=== PATIENT | female | born 1935 | race Caucasian/White ===

== ENCOUNTER → 2017-01-14 | Outpatient (CLI) | payer OTHER | LOC: FIMAGING 13:08 | PROVIDERS: ATTEND Internal Medicine Cardiovascular Disease | DX: J43.9 Emphysema, unspecified (principal); J90 Pleural effusion, not elsewhere classified; I25.83 Coronary atherosclerosis due to lipid rich plaque; Z79.899 Other long term (current) drug therapy ==

== ENCOUNTER → 2018-04-14 | Outpatient (CLI) | payer OTHER | DX: J98.4 Other disorders of lung (principal); I70.0 Atherosclerosis of aorta; I77.1 Stricture of artery; Z79.899 Other long term (current) drug therapy ==

== ENCOUNTER 2018-08-27 17:15 | Inpatient (IN) | payer OTHER ==
--- NOTE | 2018-08-27 17:32 | EDPHY ---
H & P Time Seen by Provider: 08/27/18 17:18 HPI/ROS: CHIEF COMPLAINT: Abdominal pain HISTORY OF PRESENT ILLNESS: [place] [address] [place] and had bread from [employer] and an egg-beater on top, but she thought the bread might be bad because she had it for 2 weeks. Shortly afterwards at about 1:30 p.m. She developed lower right-sided abdominal pain associated with nausea and vomiting multiple times. Abdominal pain still present, worse with movement or palpation. No diarrhea. No fever or chills. Does not radiate. REVIEW OF SYSTEMS: Eye: no change in vision ENT: no sore throat Cardiac: no chest pain or syncope Pulmonary: no cough or SOB Abdomen: HPI Musculoskeletal: no back pain Skin: no rash Neuro: no headache Constitutional: no fever : no urinary symptoms A comprehensive 10 point review of systems is otherwise negative aside from elements mentioned in the history of present illness. PAST MEDICAL HISTORY: Includes AFib atrial fibrillation, basal cell carcinoma [place] [address] General Appearance: Alert and conversant, cooperative. Eyes: No scleral icterus. ENT, Mouth: Dry mucous membranes. Respiratory: Normal respiratory effort, breath sounds equal, lungs are clear to auscultation. Cardiovascular: Regular rate and rhythm. Gastrointestinal: Right-sided abdominal tenderness without rebound or guarding , decreased bowel sounds. Neurological: Alert, face symmetric, normal motor and sensory in extremities. Skin: Warm and dry, no rashes. Musculoskeletal: No peripheral edema. Psychiatric: Not agitated. Emergency Department course/MDM: Declined pain medication. I-STAT creatinine 1.1, CT abdomen pelvis discussed and consented. 1830: Per Dr. Gil shows at least 3 small-bowel diverticula with inflammation consistent with small bowel diverticulitis, normal appendix, otherwise negative. He does not think this looks ischemic. 2007: 1 gianluca Valles discussed and consented. The patient says her penicillin allergy happened in the 1930s when she was given a"yellow vial"of penicillin to drink because the kids in her neighborhood had "trench mouth." She has subsequently had ampicillin without any reaction. Constitutional: Initial Vital Signs Temperature (C) 37.1 C 08/27/18 17:36 Heart Rate 68 08/27/18 17:36 Respiratory Rate 18 08/27/18 17:36 Blood Pressure 161/90 H 08/27/18 17:36 O2 Sat (%) 88 L 08/27/18 17:36 O2 Delivery Mode Room Air O2 (L/minute) 2 Allergies/Adverse Reactions: Penicillins Allergy (Verified 08/27/18 17:36) Home Medications: Medication Instructions Recorded Amiodarone HCl [Pacerone] 100 mg PO HS 08/27/18 C/E/Zn/Cu/OM3/DHA/EPA/LUT/ZEAX 1 each PO BID 08/27/18 [Preservision Areds 2 Softgel] Citalopram [CeleXA] 20 mg PO DAILY 08/27/18 Lisinopril [Zestril 10 mg (*)] 10 mg PO DAILY 08/27/18 Metoprolol Tartrate [Lopressor 50 75 mg PO BID 08/27/18 mg (*)] Warfarin Sodium [Coumadin 1MG (*)] 3.5 mg PO DAILY16 08/27/18 Medical Decision Making - Diagnostics Imaging Results: Imaging Impressions Abdomen CT 08/27/18 17:45 Impression: 1. Small bowel diverticulitis in the right lower quadrant. No perforation or pneumoperitoneum. 2. Normal retrocecal appendix. 3. No evidence of ischemic bowel. 4. Extensive colonic diverticulosis. No acute colonic diverticulitis. 5. Gallbladder sludge and tiny stones. No CT evidence of acute cholecystitis. 6. Bilateral nephrolithiasis. No hydronephrosis or obstructing ureteral calculi. Findings discussed with Emergency Department physician, VITALIY ABREU at 2017 18:28. Imaging: Discussed imaging studies w/ will call clerk Radiologist Differential Diagnosis: Differential includes but not limited to diverticulitis, appendicitis, mesenteric ischemia, volvulus. Consult/Admit Bed Type: [place] [id number] - Data Points Laboratory Results: Laboratory Results 08/27/18 17:48 08/27/18 17:48 08/27/18 08/27/18 08/27/18 18:35 17:48 17:48 WBC 11.48 10^3/uL H 10^3/uL (3.80-9.50) RBC 4.86 10^6/uL 10^6/uL (4.18-5.33) Hgb 14.2 g/dL g/dL (12.6-16.3) POC Hgb Hct 43.1 % % (38.0-47.0) POC Hct MCV 88.7 fL fL (81.5-99.8) MCH 29.2 pg pg (27.9-34.1) MCHC 32.9 g/dL g/dL (32.4-36.7) RDW 14.3 % % (11.5-15.2) Plt Count 186 10^3/uL 10^3/uL (150-400) MPV 9.3 fL fL (8.7-11.7) Neut % (Auto) 81.3 % H % (39.3-74.2) Lymph % (Auto) 9.1 % L % (15.0-45.0) [place] % (Auto) 8.1 % % (4.5-13.0) Eos % (Auto) 0.9 % % (0.6-7.6) Baso % (Auto) 0.3 % % (0.3-1.7) Nucleat RBC Rel Count 0.0 % % (0.0-0.2) Absolute Neuts (auto) 9.33 10^3/uL H 10^3/uL (1.70-6.50) Absolute Lymphs (auto) 1.05 10^3/uL 10^3/uL (1.00-3.00) Absolute Monos (auto) 0.93 10^3/uL H 10^3/uL (0.30-0.80) Absolute Eos (auto) 0.10 10^3/uL 10^3/uL (0.03-0.40) Absolute Basos (auto) 0.03 10^3/uL 10^3/uL (0.02-0.10) Absolute Nucleated RBC 0.00 10^3/uL 10^3/uL (0-0.01) Immature Gran % 0.3 % % (0.0-1.1) Immature Gran # 0.04 10^3/uL 10^3/uL (0.00-0.10) PT INR POC Sodium Sodium 136 mEq/L mEq/L (135-145) POC Potassium Potassium 4.0 mEq/L mEq/L (3.5-5.2) POC Chloride Chloride 106 mEq/L mEq/L (97-110) Carbon Dioxide 25 mEq/l mEq/l (22-31) Anion Gap 5 mEq/L L mEq/L (6-14) POC BUN BUN 18 mg/dL mg/dL (7-23) Creatinine 1.0 mg/dL mg/dL (0.6-1.0) POC Creatinine Estimated GFR 53 Glucose 109 mg/dL H mg/dL (70-100) POC Glucose Calcium 9.3 mg/dL mg/dL (8.5-10.4) Total Bilirubin 0.6 mg/dL mg/dL (0.1-1.4) Conjugated Bilirubin 0.2 mg/dL mg/dL (0.0-0.5) Unconjugated Bilirubin 0.4 mg/dL mg/dL (0.0-1.1) AST 21 IU/L IU/L (14-46) ALT 16 IU/L IU/L (9-52) Alkaline Phosphatase 55 IU/L IU/L (38-126) Total Protein 7.5 g/dL g/dL (6.3-8.2) Albumin 4.1 g/dL g/dL (3.5-5.0) Lipase 63 IU/L IU/L (23-300) Urine Color YELLOW Urine Appearance CLEAR Urine pH 6.0 (5.0-7.5) Ur Specific [place] 1.018 (1.002-1.030) Urine Protein NEGATIVE (NEGATIVE) Urine Ketones NEGATIVE (NEGATIVE) Urine Blood NEGATIVE (NEGATIVE) Urine Nitrate NEGATIVE (NEGATIVE) Urine Bilirubin NEGATIVE (NEGATIVE) Urine Urobilinogen NEGATIVE EU EU (0.2-1.0) Ur Leukocyte Esterase NEGATIVE (NEGATIVE) Urine Glucose NEGATIVE (NEGATIVE) 08/27/18 08/27/18 17:44 17:40 WBC RBC Hgb POC Hgb 15.0 gm/dL gm/dL (12.6-16.3) Hct POC Hct 44 % % (38-47) MCV MCH MCHC RDW Plt Count MPV Neut % (Auto) Lymph % (Auto) Nash % (Auto) Eos % (Auto) Baso % (Auto) Nucleat RBC Rel Count Absolute Neuts (auto) Absolute Lymphs (auto) Absolute Monos (auto) Absolute Eos (auto) Absolute Basos (auto) Absolute Nucleated RBC Immature Gran % Immature Gran # PT 25.6 SEC H SEC (12.0-15.0) INR 2.34 H (0.83-1.16) POC Sodium 143 mEq/L mEq/L (135-145) Sodium POC Potassium 3.9 mEq/L mEq/L (3.3-5.0) Potassium POC Chloride 106 mEq/L mEq/L (97-110) Chloride Carbon Dioxide Anion Gap POC BUN 18 mg/dL mg/dL (7-23) BUN Creatinine POC Creatinine 1.1 mg/dL H mg/dL (0.6-1.0) Estimated GFR Glucose POC Glucose 111 mg/dL H mg/dL (70-100) Calcium Total Bilirubin Conjugated Bilirubin Unconjugated Bilirubin AST ALT Alkaline Phosphatase Total Protein Albumin Lipase Urine Color Urine Appearance Urine pH Ur Specific [place] Urine Protein Urine Ketones Urine Blood Urine Nitrate Urine Bilirubin Urine Urobilinogen Ur Leukocyte Esterase Urine Glucose Medications Given: Discontinued Medications Sodium Chloride (Ns) 1,000 mls @ 0 mls/hr IV EDNOW ONE; Wide Open PRN Reason: Protocol Stop: 08/27/18 17:36 Last Admin: 08/27/18 17:40 Dose: 1,000 mls Ertapenem 1 gm/ Sodium (Chloride) 100 mls @ 200 mls/hr IV EDNOW ONE PRN Reason: Protocol Stop: 08/27/18 20:33 Last Admin: 08/27/18 20:41 Dose: 100 mls Point of Care Test Results: Chemistry 08/27/18 17:44 POC Sodium 143 mEq/L mEq/L (135-145) POC Potassium 3.9 mEq/L mEq/L (3.3-5.0) POC Chloride 106 mEq/L mEq/L (97-110) POC BUN 18 mg/dL mg/dL (7-23) POC Creatinine 1.1 mg/dL H mg/dL (0.6-1.0) POC Glucose 111 mg/dL H mg/dL (70-100) ISTAT H&H 08/27/18 17:44 POC Hgb 15.0 gm/dL gm/dL (12.6-16.3) POC Hct 44 % % (38-47) Departure - Departure Disposition: [facility] Acute Clinical Impression: Diverticulitis small intestine w/o perforation or abscess w/o bleeding Condition: Good
[2018-08-27] MEDS ORDERED: NS 1,000 ML IV ONE (17:35)
[2018-08-27] MEDS ORDERED: IOPAMIDOL (ISOVUE-300) 100 ML BTL ONE (17:52)
[2018-08-27 17:56] LABS: PLATELET COUNT 186 10^3/uL (150-400)
[2018-08-27] MEDS ORDERED: ERTAPENEM 1 GM in NS 100 ML IV ONE (20:04)
[2018-08-27 20:06] LABS: INR 2.34 (0.83-1.16); PROTIME(PATIENT) 25.6 SEC (12.0-15.0)
[2018-08-27] MEDS ORDERED: AMIODARONE HCL 200 MG TAB PO SCH (21:45)
[2018-08-27] MEDS ORDERED: ONDANSETRON 4 MG/2 ML VIAL IVP PRN (21:46)
[2018-08-27] MEDS ORDERED: ACETAMINOPHEN 325 MG TAB PO PRN (21:46)
[2018-08-27] MEDS ORDERED: ONDANSETRON DISINTEGRATING 4 MG TAB PO PRN (21:46)
--- NOTE | 2018-08-27 21:52 | PDGENHP ---
History and Physical - Chief Complaint abdominal pain - History of Present Illness The patient pw right-sided abdominal pain associated with nausea and vomiting multiple times. She has been afebrile. Her oral intake has been limited IN the ER she is noted to have Leukocytosis and a CT scan shows SB Diverticulitis. She was treated with IVF and abx and reports that she is starting to feel better. No diarrhea. No fever or chills. Does not radiate. No urinary sx. No resp sx. AFib atrial fibrillation, basal cell carcinoma, chronic AC, HTN Social history: Lives up in the [facility] [address]. No smoker FmHx: non contributory CT report: 3 small-bowel diverticula with inflammation consistent with small bowel diverticulitis, normal appendix, otherwise negative. no e/o ischemia. History Information - Allergies/Home Medication List Allergies/Adverse Reactions: Penicillins Allergy (Verified 08/27/18 17:36) Home Medications: Amiodarone HCl [Pacerone] 100 mg PO HS 08/27/18 [Last Taken 08/26/18] C/E/Zn/Cu/OM3/DHA/EPA/LUT/ZEAX [Preservision Areds 2 Softgel] 1 each PO BID [Last Taken 08/27/18] Citalopram [CeleXA] 20 mg PO DAILY 08/27/18 [Last Taken 08/27/18] Lisinopril [Zestril 10 mg (*)] 10 mg PO DAILY 08/27/18 [Last Taken 08/27/18] Metoprolol Tartrate [Lopressor 50 mg (*)] 75 mg PO BID 08/27/18 [Last Taken ] Warfarin Sodium [Coumadin 1MG (*)] 3.5 mg PO DAILY16 08/27/18 [Last Taken ] I have personally reviewed and updated: medical history, social history - Social History Smoking Status: Former smoker Review of Systems Review of Systems: ROS: 10pt was reviewed & negative except for what was stated in HPI & below Physical Exam Physical Exam: Temp Pulse Resp BP Pulse Ox 36.8 C 79 18 134/74 H 92 08/27/18 21:10 08/27/18 21:10 08/27/18 21:10 08/27/18 21:10 08/27/18 21:10 Constitutional: no apparent distress Eyes: PERRL, EOMI Ears, Nose, Mouth, Throat: hearing normal, dry mucous membranes Cardiovascular: regular rate and rhythym Respiratory: no respiratory distress, no rales or rhonchi, clear to auscultation Gastrointestinal: normoactive bowel sounds, tenderness (RLQ tenderness), No rebound, No distension Skin: warm Neurologic: AAOx3 Psychiatric: interacting appropriately, not anxious, not encephalopathic Lymph, Heme, Immunologic: No petechiae Lab Data & Imaging Review 08/27/18 17:48 08/27/18 17:48 WBC 11.48 10^3/uL (3.80-9.50) H 08/27/18 17:48 RBC 4.86 10^6/uL (4.18-5.33) 08/27/18 17:48 Hgb 14.2 g/dL (12.6-16.3) 08/27/18 17:48 POC Hgb 15.0 gm/dL (12.6-16.3) 08/27/18 17:44 Hct 43.1 % (38.0-47.0) 08/27/18 17:48 POC Hct 44 % (38-47) 08/27/18 17:44 MCV 88.7 fL (81.5-99.8) 08/27/18 17:48 MCH 29.2 pg (27.9-34.1) 08/27/18 17:48 MCHC 32.9 g/dL (32.4-36.7) 08/27/18 17:48 RDW 14.3 % (11.5-15.2) 08/27/18 17:48 Plt Count 186 10^3/uL (150-400) 08/27/18 17:48 MPV 9.3 fL (8.7-11.7) 08/27/18 17:48 Neut % (Auto) 81.3 % (39.3-74.2) H 08/27/18 17:48 Lymph % (Auto) 9.1 % (15.0-45.0) L 08/27/18 17:48 [place] % (Auto) 8.1 % (4.5-13.0) 08/27/18 17:48 Eos % (Auto) 0.9 % (0.6-7.6) 08/27/18 17:48 Baso % (Auto) 0.3 % (0.3-1.7) 08/27/18 17:48 Nucleat RBC Rel Count 0.0 % (0.0-0.2) 08/27/18 17:48 Absolute Neuts (auto) 9.33 10^3/uL (1.70-6.50) H 08/27/18 17:48 Absolute Lymphs (auto) 1.05 10^3/uL (1.00-3.00) 08/27/18 17:48 Absolute Monos (auto) 0.93 10^3/uL (0.30-0.80) H 08/27/18 17:48 Absolute Eos (auto) 0.10 10^3/uL (0.03-0.40) 08/27/18 17:48 Absolute Basos (auto) 0.03 10^3/uL (0.02-0.10) 08/27/18 17:48 Absolute Nucleated RBC 0.00 10^3/uL (0-0.01) 08/27/18 17:48 Immature Gran % 0.3 % (0.0-1.1) 08/27/18 17:48 Immature Gran # 0.04 10^3/uL (0.00-0.10) 08/27/18 17:48 PT 25.6 SEC (12.0-15.0) H 08/27/18 17:40 INR 2.34 (0.83-1.16) H 08/27/18 17:40 POC Sodium 143 mEq/L (135-145) 08/27/18 17:44 Sodium 136 mEq/L (135-145) 08/27/18 17:48 POC Potassium 3.9 mEq/L (3.3-5.0) 08/27/18 17:44 Potassium 4.0 mEq/L (3.5-5.2) 08/27/18 17:48 POC Chloride 106 mEq/L (97-110) 08/27/18 17:44 Chloride 106 mEq/L (97-110) 08/27/18 17:48 Carbon Dioxide 25 mEq/l (22-31) 08/27/18 17:48 Anion Gap 5 mEq/L (6-14) L 08/27/18 17:48 POC BUN 18 mg/dL (7-23) 08/27/18 17:44 BUN 18 mg/dL (7-23) 08/27/18 17:48 Creatinine 1.0 mg/dL (0.6-1.0) 08/27/18 17:48 POC Creatinine 1.1 mg/dL (0.6-1.0) H 08/27/18 17:44 Estimated GFR 53 08/27/18 17:48 Glucose 109 mg/dL (70-100) H 08/27/18 17:48 POC Glucose 111 mg/dL (70-100) H 08/27/18 17:44 Calcium 9.3 mg/dL (8.5-10.4) 08/27/18 17:48 Total Bilirubin 0.6 mg/dL (0.1-1.4) 08/27/18 17:48 Conjugated Bilirubin 0.2 mg/dL (0.0-0.5) 08/27/18 17:48 Unconjugated Bilirubin 0.4 mg/dL (0.0-1.1) 08/27/18 17:48 AST 21 IU/L (14-46) 08/27/18 17:48 ALT 16 IU/L (9-52) 08/27/18 17:48 Alkaline Phosphatase 55 IU/L (38-126) 08/27/18 17:48 Total Protein 7.5 g/dL (6.3-8.2) 08/27/18 17:48 Albumin 4.1 g/dL (3.5-5.0) 08/27/18 17:48 Lipase 63 IU/L (23-300) 08/27/18 17:48 Urine Color YELLOW 08/27/18 18:35 Urine Appearance CLEAR 08/27/18 18:35 Urine pH 6.0 (5.0-7.5) 08/27/18 18:35 Ur Specific [place] 1.018 (1.002-1.030) 08/27/18 18:35 Urine Protein NEGATIVE (NEGATIVE) 08/27/18 18:35 Urine Ketones NEGATIVE (NEGATIVE) 08/27/18 18:35 Urine Blood NEGATIVE (NEGATIVE) 08/27/18 18:35 Urine Nitrate NEGATIVE (NEGATIVE) 08/27/18 18:35 Urine Bilirubin NEGATIVE (NEGATIVE) 08/27/18 18:35 Urine Urobilinogen NEGATIVE EU (0.2-1.0) 08/27/18 18:35 Ur Leukocyte Esterase NEGATIVE (NEGATIVE) 08/27/18 18:35 Urine Glucose NEGATIVE (NEGATIVE) 08/27/18 18:35 Assessment & Plan Assessment: #Diverticulitis small intestine w/o perforation or abscess w/o bleeding #Leukocytosis #Dehydration #Nausea and Vomiting #pAfib and chronic AC Plan: cannot r/o bacterial infection. reports feeling better. Will cont Invanz. Can likely d/c on Flagyl once improving IVF antiemetics as needed cont AC cont home meds PT eval
[2018-08-27] MEDS ORDERED: NS 1,000 ML IV SCH (22:00)
[2018-08-27] MEDS ORDERED: WARFARIN SODIUM 1 MG TAB PO ONE (22:00)
[2018-08-27] MEDS: METOPROLOL TARTRATE 50 MG TAB PO SCH (22:50)
[2018-08-28 04:49] LABS: PLATELET COUNT 148 10^3/uL (150-400)
[2018-08-28 04:57] LABS: INR 2.79 (0.83-1.16); PROTIME(PATIENT) 29.3 SEC (12.0-15.0)
--- NOTE | 2018-08-28 07:12 | PDMN ---
Medical Necessity Medical necessity: Pt meets inpt criteria per MD order and MCG M-150, Diverticulitis, Acute. 83 y/o presenting w/R side abdominal pain, nausea/ vomiting, admitted w/small intestine diverticulitis- confirmed on CT scan, leukocytosis (WBC's 11.48), and dehydration. IVF, IV ABX's, IV antiemetics, PT eval pending, anticipate>2MN for ongoing eval/management of above.
[2018-08-28] MEDS ORDERED: CITALOPRAM 20 MG TAB PO SCH (09:00)
[2018-08-28] MEDS ORDERED: PRESERVISION AREDS2 FORMULA EYE VIT 1 EACH PO SCH (09:00)
[2018-08-28] MEDS ORDERED: LISINOPRIL 10 MG TAB PO SCH (09:00)
[2018-08-28] MEDS: METOPROLOL TARTRATE 50 MG TAB PO SCH (09:26)
--- NOTE | 2018-08-28 11:09 | ASMTDCNOTE ---
Case Management Discharge Discharge Order Complete? Answers: Yes Patient to Obtain Answers: via Family Medications Transportation Arranged Answers: Family/Friends Discharge Comments Notes: CM discussed discharge plan with RN. Pt is being discharged independently. No CM needs identified. Family to transport. Date Signed: 08/28/2018 11:09 AM Electronically Signed By:DEREK Butts
[2018-08-28 11:10] VITALS: BP 93/60
--- NOTE | 2018-08-28 11:12 | ASMTLACE ---
LACE Length of stay for Answers: Less than 1 day current admission Acuity / Level of Answers: Yes Care: Did the patient have an inpatient admission? # of Emergency department Answers: 0 visits in the last 6 months Score: 3 Date Signed: 08/28/2018 11:12 AM Electronically Signed By:DEREK Butts
--- NOTE | 2018-08-28 11:12 | PDDCSUM ---
Discharge Summary Discharge Summary: Date of Admission: 08/27/2018 Date of Discharge: 08/28/2018 Discharge Diagnoses: Acute uncomplicated diverticulitis, improved Dehydration, resolved Leukocytosis, resolved Mild anemia, likely hemodilutional Paroxysmal atrial fibrillation, on chronic warfarin Bilateral nephrolithiasis, asymptomatic Multilevel DJD spine Moderate hiatal hernia Uterine leiomyoma Admission Diagnoses: Diverticulitis small intestine w/o perforation or abscess w/o bleeding Leukocytosis Dehydration Nausea and Vomiting pAfib and chronic AC Consultants: None. Hospital Course: The patient is an 83-year-old female with past medical history of atrial fibrillation who was admitted for acute diverticulitis. She had presented to the ED with multiple episodes of nausea and vomiting. She was unable to keep down fluids. She was treated with IV fluids and antibiotic ertapenem. She felt much better and was able to tolerate a diet the next day. The patient was discharged home with a prescription for Bactrim and Flagyl for 6 days. She is very against taking antibiotics/additional medications so the patient was educated about the importance of antibiotic use for diverticulitis. She was also confused about her warfarin dosing, which has been adjusted by her PCP. She was set up with home healthcare to avoid any confusion about medications until she can be seen at her PCP office. Physical Exam: Gen: alert, NAD. MSK: able to ambulate w/ walker. Condition: Stable. Discharged to: Home with home healthcare. Pertinent tests/labs/imaging: CT abd/pelvis w/ contrast: Impression: 1. Small bowel diverticulitis in the right lower quadrant. No perforation or pneumoperitoneum. 2. Normal retrocecal appendix. 3. No evidence of ischemic bowel. 4. Extensive colonic diverticulosis. No acute colonic diverticulitis. 5. Gallbladder sludge and tiny stones. No CT evidence of acute cholecystitis. 6. Bilateral nephrolithiasis. No hydronephrosis or obstructing ureteral calculi. INR on discharge-2.79 White blood cell count initially 11.5, down to 9.41 on discharge. Medications: Please see med rec form. New medications: Bactrim DS po BID x 6 days. Flagyl 500mg po TID x 6 days. Special instructions: Return to ED if symptoms worsen. Drink plenty of fluid to stay well hydrated. Take your first doses of antibiotics (2 antibiotics - Bactrim DS and Flagyl) tonight with your supper. Your blood pressure has been low because you were dehydrated. Your blood pressure should return to normal. Check your blood pressure at home before you take your metoprolol over the next few days. If your blood pressure is low (100/ 60), skip the next a dose of metoprolol. Seek medical attention for fever/ chills, weakness, shortness of breath, dizziness, uncontrolled pain, nausea, diarrhea. Activity: As tolerated, Continue using home oxygen 2L NC at night. Coumadin: Your last INR was 2.79 on 08/28 Please schedule your INR check for Sunday 10/01 or 09/02 You received your coumadin dose for today 08/28. You will need to take your next dose tomorrow Wednesday 08/29 3.5mg, Friday 1mg, Friday- no dose, Friday 3.5mg, Friday 3.5mg, 3.5mg, Friday 3.5mg Follow up: Follow up with PCP in 1 week.
--- NOTE | 2018-08-28 11:37 | PDIAF ---
- Diagnosis Code Status: Full Code - Medication Management Detention Antibiotics: Flagyl 500mg po TID x 6 days, Bactrim DS po BID x 6 days Aluminum Siding Mechanic Antibiotic Stop Date: 09/03/18 Discharge Medications: electronically signed and located in the Home Medication List. - Orders Services needed: Home Care, Registered Nurse Home Care Face to Face: I certify that this patient was under my care and that I had the required [id number] encounter meeting the encounter requirements on the discharge day. My findings support the fact that the patient is homebound as defined in Home Care Face to Face Continued: [facility] Chapter 7 Medicare Benefits Manual 30.1.1 , The condition of the patient is such that there exists a normal inability to leave home and consequently, leaving home would require a considerable and taxing effort. Diet Recommendation: no restrictions on diet Diet Texture: Regular Texture Diet Additional Instructions: Drink plenty of fluid to stay well hydrated. Take your first doses of antibiotics (2 antibiotics - Bactrim DS and Flagyl) tonight with your supper. Your blood pressure has been low because you were dehydrated. Your blood pressure should return to normal. Check your blood pressure at home before you take your metoprolol over the next few days. If your blood pressure is low (100/ 60), skip the next a dose of metoprolol. - Labs/Radiology PT/INR Date: 08/31/18 (send results to PCP office) - Follow Up Care Current Providers and Referrals: Patient,NotPresent [Primary Care Provider] - follow up in 1 week (Dr. Zamzam Quinones - may need warfarin to be adjusted. Recommend to check your INR on FridayAug 31 or FridaySep 02.)
--- NOTE | 2018-08-28 14:21 | ASMTCMCOM ---
CM Note CM Note Notes: Pt linked with [facility]. CM submit orders. no other DC needs identified at this time. Pt's friend to transport. Date Signed: 08/28/2018 02:20 PM Electronically Signed By:DEREK Butts
--- NOTE | 2018-08-28 14:21 | ASDISCHSUM ---
Discharge Information Plan Status:Home with No Needs Medically Cleared to Leave:08/27/2018 Discharge Date:08/27/2018 CM D/C Disposition:Home, Routine, Self-Care ADT D/C Disposition:[id number] Projected Discharge Date:08/28/2018 12:00 AM Transportation at D/C:Family Discharge Delay Reason: Follow-Up Date:08/28/2018 12:00 AM Discharge Slot: Final Diagnosis: Placement Information Referral Type:*Home Health Care Services Referral ID:[id number] Provider Name:[facility] Address 1:[address] Phone Number: Address 2: [address] Fax Number: City:[place] Selection Factors: State:[place] Patient Contact Information Contact Name:CLAUDIOPHULENNIE Relationship:Friend Address: Work Phone: City: [facility] Phone: [facility] Code: Email: Financial Information Financial Class:Medicare Advantage Plans Primary Plan Desc:[employer] GOLD MEDICARE Primary Plan Number:[id number] Secondary Plan Desc: Secondary Plan Number: Assessment Information Case Management Discharge Plan Note Case Management Discharge Discharge Order Complete? Answers: Yes Patient to Obtain Answers: via Family Medications Transportation Arranged Answers: Family/Friends Discharge Comments Notes: CM discussed discharge plan with RN. Pt is being discharged independently. No CM needs identified. Family to transport. Date Signed: 08/28/2018 11:09 AM Electronically Signed By:DEREK Butts LACE JOSE Length of stay for Answers: Less than 1 day current admission Acuity / Level of Answers: Yes Care: Did the patient have an inpatient admission? # of Emergency department Answers: 0 visits in the last 6 months Score: 3 Date Signed: 08/28/2018 11:12 AM Electronically Signed By:DEREK Butts [facility] CM Progress Note CM Note CM Note Notes: Pt linked with [facility]. CM submit orders. no other DC needs identified at this time. Pt's friend to transport. Date Signed: 08/28/2018 02:20 PM Electronically Signed By:DEREK Butts Intervention Information
[2018-08-28] MEDS ORDERED: WARFARIN SODIUM 2 MG TAB PO SCH (16:00)
[2018-08-28] MEDS ORDERED: ERTAPENEM 1 GM in NS 100 ML IV SCH (21:00)
== END 2018-08-28 14:55 | disposition home health service (06) | DRG 392 ==
LOC: EDUNIT# → EDBD → F1N 21:05
PROVIDERS: ADMIT Family Medicine; ATTEND Family Medicine
DX: K57.12 Diverticulitis of small intestine without perforation or abscess without bleeding (principal); E86.0 Dehydration; D64.9 Anemia, unspecified; I48.0 Paroxysmal atrial fibrillation; N20.0 Calculus of kidney; K44.9 Diaphragmatic hernia without obstruction or gangrene; N25.9 Disorder resulting from impaired renal tubular function, unspecified; Z79.01 Long term (current) use of anticoagulants
CPT/HCPCS: 82435-PO; 82565-PO; 82947-PO; 84132-PO; 84295-PO; 84520-PO; 85014-PO; 97116-GP; 97161-GP; G8978-GP-CI; G8979-GP-CH; J1335; Q9967